=== PATIENT | female | born 1940 | race Caucasian/White ===

== ENCOUNTER 2022-11-07 10:12 | Outpatient (OUT) | payer MEDICARE, SELFPAY ==
[2022-11-07 12:07] LABS: Free T3 2.46 pg/mL (2.18-3.98); Thyroid Stimulating Hormone 7.113 uIU/mL (0.358-3.740)
[2022-11-07 12:08] LABS: Free T4 0.88 ng/dL (0.76-1.46)
== END 2022-11-07 10:13 | disposition home or self-care (01) ==
PROVIDERS: PCP Family Medicine; Visit Provider Nurse Practitioner
DX: R94.6 Abnormal results of thyroid function studies (principal)
CPT/HCPCS: 36415; 84439; 84443; 84481

== ENCOUNTER 2025-01-02 11:28 | Outpatient (OUT) | payer MEDICARE, SELFPAY | END 2025-01-02 11:29 | disposition home or self-care (01) | PROVIDERS: PCP Family Medicine; Visit Provider Nurse Practitioner Family | DX: E28.39 Other primary ovarian failure (principal); M85.88 Other specified disorders of bone density and structure, other site | CPT/HCPCS: 77080 ==